=== PATIENT | female | born 1955 | race Caucasian/White ===

== ENCOUNTER 2020-12-23 01:14 | Emergency (ER) | payer OTHER ==
[~2020-12-23] VITALS: Ht 165.1 cm; Wt 83.9 kg
[~2020-12-23 01:14] MED LIST: ALBU0.0912 INH; ATOR20TA PO; HYDR-3639 PO; HYDR25TA32 PO; LEVE250T2 PO; NAPR-1560 PO; OMEP40EC24 PO; TRAZ-344 PO
[2020-12-23 01:27] VITALS: BP 142/78
[2020-12-23 01:45] VITALS: BP 135/80
--- NOTE | 2020-12-23 02:44 | NUR ---
ERMD ASSESSED, TREAT, AND D/C PT. NO NURSING INTERVENTIONS NEEDED. Patient discharged with v/s stable. Written and verbal after care instructions given and explained. Patient verbalized understanding. Ambulatory with to car. All questions addressed prior to discharge. Advised to follow up with PMD.
== END 2020-12-23 01:45 | disposition home or self-care (01) ==
LOC: MED 01:14
DX: I95.1 Orthostatic hypotension (principal); I10 Essential (primary) hypertension; E07.9 Disorder of thyroid, unspecified; Z79.899 Other long term (current) drug therapy; Z98.890 Other specified postprocedural states; Z88.5 Allergy status to narcotic agent; Z90.710 Acquired absence of both cervix and uterus
CPT/HCPCS: 99281

== ENCOUNTER 2021-05-10 21:01 | Emergency (ER) | payer OTHER ==
[~2021-05-10] VITALS: Ht 154.9 cm; Wt 63.5 kg
[2021-05-10 21:10] VITALS: BP 172/63
--- NOTE | 2021-05-10 21:16 | NUR ---
PT OFFLOADED TO TENT.
--- NOTE | 2021-05-10 21:30 | NUR ---
65 Y/O F PRESENTS TO ED WITH C/O GEN WEAK x4 DAYS. GEN WEAK WITH MILD SOB ON EXERTION. O2 SAT 98% RA. COVID+ ON 05/08. +NAUSEA MEDHX- HTN, HLYD ALLX- CODEINE
[2021-05-10] MEDS ORDERED: ONDANSETRON 4 MG/2 ML VIAL IVP ONE (23:20)
[2021-05-10] MEDS ORDERED: NACL 0.9% 1,000 ML IV ONE (23:20)
[2021-05-10] MEDS ORDERED: MECLIZINE 25 MG TAB PO ONE (23:20)
[2021-05-10 23:31] LABS: BASOPHILS % (AUTO) 0.7 % (0.0-2.0); EOSINOPHILS # (AUTO) 0.1 K/uL (0-0.4); EOSINOPHILS % (AUTO) 1.8 % (0.0-4.0); HEMOGLOBIN 14.9 g/dL (12.0-16.0); LYMPHOCYTES # (AUTO) 1.4 K/uL (2.5-16.5); LYMPHOCYTES % (AUTO) 30.2 % (20.5-51.1); MEAN CORPUSCULAR HEMOGLOBIN 30 pg (27-31); MEAN CORPUSCULAR HGB CONC 34 g/dL (33-37); MEAN CORPUSCULAR VOLUME 89.1 fL (80-94); MONOCYTES # (AUTO) 0.7 K/uL (0.8-1.0); MONOCYTES % (AUTO) 15.2 % (1.7-9.3); NEUTROPHILS # (AUTO) 2.5 K/uL (1.8-7.7); NEUTROPHILS % (AUTO) 52.1 % (42.2-75.2); PLATELET COUNT (AUTO) 185 K/uL (140-450); RED BLOOD CELL COUNT(AUTO) 4.94 MIL/uL (4.20-5.40); RED CELL DISTRIBUTION WIDTH 13.6 % (11.6-13.7); WHITE BLOOD COUNT (AUTO) 4.8 K/uL (4.8-10.8)
[2021-05-10 23:45] LABS: MAGNESIUM 1.9 mg/dL (1.8-2.4); PHOSPHORUS 3.5 mg/dL (2.5-4.9)
[2021-05-10 23:50] LABS: ALBUMIN 4.6 g/dL (3.4-5.0); ANION GAP 12.8 (8-16); CARBON DIOXIDE 29.7 mmol/L (21-32); CREATININE 0.9 mg/dL (0.6-1.3); POTASSIUM 3.5 mmol/L (3.5-5.1); TOTAL BILIRUBIN 0.6 mg/dL (0.0-1.0)
[2021-05-11 00:11] LABS: APPEARANCE,URINE CLEAR (CLEAR); BILIRUBIN,URINE 1+ (NEGATIVE); BLOOD, URINE TRACE-L (NEGATIVE); COLOR,URINE YELLOW (YELLOW); LEUKOCYTE ESTERASE ,URINE TRACE (NEGATIVE); NITRITE, URINE NEGATIVE (NEGATIVE); PH,URINE 6.5 (5.0-9.0); UGLUCOSE NEGATIVE (NEGATIVE)
[2021-05-11] MEDS ORDERED: ONDA-188 SL (00:43)
[2021-05-11] MEDS ORDERED: MECL-303 PO (00:43)
[2021-05-11] MEDS ORDERED: MECLIZINE 25 MG TAB ONE (02:43)
[2021-05-11] MEDS ORDERED: ONDANSETRON 4 MG/2 ML VIAL ONE (02:43)
[2021-05-11] MEDS ORDERED: CEPH-588 PO (04:37)
[2021-05-11 04:42] VITALS: BP 117/54
--- NOTE | 2021-05-11 04:42 | NUR ---
Patient discharged with v/s stable. Written and verbal after care instructions given and explained. Patient alert, oriented and verbalized understanding of instructions. Ambulatory with steady gait. All questions addressed prior to discharge. ID band removed. Patient advised to follow up with PMD. Rx of MECLIZINE HCL AND ONDANSETRON given. Patient educated on indication of medication including possible reaction and side effects. Opportunity to ask questions provided and answered. VSS, A/OX4, STEADY GAIT, UNLLABORED BREATHING, AND CALM DEMEANOR.
--- NOTE | 2021-05-28 13:52 | NUR ---
LATE ENTRY- MECLIZINE GIVEN ON 05/11/21 AT 0250. ONDANSETRON GIVEN ON 05/11/21 AT 0248. NS IV FLUIDS INITIATED AT 05/11/21 AT 0045.
== END 2021-05-11 04:42 | disposition home or self-care (01) ==
LOC: MED 21:01
DX: U07.1 COVID-19 (principal); I10 Essential (primary) hypertension; E07.9 Disorder of thyroid, unspecified
CPT/HCPCS: 36415; 70450; 71045; 80053; 81001; 83735; 84100; 84484; 85025; 87086; 93005; 96361; 96374; 99285; J2405; J7030; J8597; Q0092

== ENCOUNTER 2023-09-20 15:37 | Emergency (ER) | payer OTHER ==
[~2023-09-20] VITALS: Ht 162.6 cm; Wt 59.0 kg
[~2023-09-20 15:37] MED LIST changes: +CEPH-588 PO; +MECL-303 PO; +ONDA-188 SL
[2023-09-20 15:48] VITALS: BP 208/82; PULSE 59; RESP 18; TEMP 98.3; O2SAT 97
[2023-09-20 18:04] LABS: BASOPHILS # (AUTO) 0.1 K/uL (0.00-0.22); BASOPHILS % (AUTO) 1.4 % (0.0-2.0); EOSINOPHILS # (AUTO) 0.2 K/uL (0-0.4); EOSINOPHILS % (AUTO) 3.1 % (0.0-4.0); HEMATOCRIT 42.1 % (36-48); HEMOGLOBIN 14.4 g/dL (12.0-16.0); LYMPHOCYTES # (AUTO) 2.1 K/uL (2.5-16.5); LYMPHOCYTES % (AUTO) 37.2 % (20.5-51.1); MEAN CORPUSCULAR HEMOGLOBIN 30 pg (27-31); MEAN CORPUSCULAR HGB CONC 34 g/dL (33-37); MEAN CORPUSCULAR VOLUME 88.9 fL (80-94); MONOCYTES # (AUTO) 0.5 K/uL (0.8-1.0); MONOCYTES % (AUTO) 9.7 % (1.7-9.3); NEUTROPHILS # (AUTO) 2.7 K/uL (1.8-7.7); NEUTROPHILS % (AUTO) 48.6 % (42.2-75.2); PLATELET COUNT (AUTO) 167 K/uL (140-450); RED BLOOD CELL COUNT(AUTO) 4.74 MIL/uL (4.20-5.40); RED CELL DISTRIBUTION WIDTH 13.8 % (11.6-13.7); WHITE BLOOD COUNT (AUTO) 5.5 K/uL (4.8-10.8)
[2023-09-20 18:20] LABS: ANION GAP 9.6 (8-16); CALCIUM 9.8 mg/dL (8.5-10.1); CARBON DIOXIDE 30.5 mmol/L (21-32); CREATININE 0.8 mg/dL (0.6-1.3); POTASSIUM 4.1 mmol/L (3.5-5.1)
[2023-09-20 18:30] LABS: INR 1.11 (0.8-1.2); PARTIAL THROMBOPLASTIN TIME 34.6 secs (22-35.6); PROTHROMBIN TIME 11.6 secs (10.8-13.4)
[2023-09-20] MEDS: ACETAMINOPHEN EXTRA STRENGTH 500 MG TAB PO ONE (18:40)
[2023-09-20] MEDS ORDERED: ACET-10509 PO (19:24)
[2023-09-20 19:38] VITALS: BP 168/67; PULSE 53; RESP 13; TEMP 98.3; O2SAT 98
== END 2023-09-20 19:38 | disposition home or self-care (01) ==
LOC: MED 15:37
DX: I11.9 Hypertensive heart disease without heart failure (principal); E03.9 Hypothyroidism, unspecified; Z79.899 Other long term (current) drug therapy; Z88.5 Allergy status to narcotic agent
CPT/HCPCS: 36415; 70450; 71045; 80048; 84484; 85025; 85610; 85730; 93005; 99285; Q0092